=== PATIENT | male | born 1955 | race Caucasian/White ===

== ENCOUNTER 2021-11-25 23:18 | Emergency (ER) | payer MEDICARE, BC ==
[~2021-11-25] VITALS: Ht 172.7 cm; Wt 86.2 kg
--- NOTE | 2021-11-25 23:50 | NUR ---
PT TRIAGED AND PLACED BACK INTO WAITING ROOM, NO AVAILABLE BEDS AT THIS TIME.
--- NOTE | 2021-11-26 01:04 | NUR ---
PT PLACED IN ROOM 2A.
--- NOTE | 2021-11-26 01:35 | NUR ---
Patient discharged to home in stable condition. Written and verbal after care instructions given. Patient verbalizes understanding of instructions. Stressed follow up or return to ER for worsening s/s. Patient is a/ox4, NAD noted, patient is able to walk with steady gait
[2021-11-26 01:44] VITALS: BP 130/83
== END 2021-11-26 01:35 | disposition home or self-care (01) ==
LOC: ER 23:29
DX: T80.89XA Other complications following infusion, transfusion and therapeutic injection, initial encounter (principal); M79.622 Pain in left upper arm; Z85.820 Personal history of malignant melanoma of skin
CPT/HCPCS: A4663